=== PATIENT | male | born 1960 | race Two or more races ===

== ENCOUNTER 2021-04-12 05:25 | Day surgery (SDC) | payer OTHER ==
[~2021-04-12 05:25] MED LIST: ADULT LOW DOSE81 M1 PO; COZAAR100 MG PO; CRESTOR10 MG PO; ESTAZOLAM1 MG PO; LORAZEPAM0.5 MG PO
== END 2021-04-12 11:50 | disposition home or self-care (01) ==
LOC: CIR.AMB 05:25
PROVIDERS: ATTEND Urology
DX: N47.1 Phimosis (principal); Z20.822 Contact with and (suspected) exposure to COVID-19